=== PATIENT | male | born 1990 | race African-American/Black ===

== ENCOUNTER 2017-09-26 20:55 | Emergency (ER) | payer OTHER ==
[2017-09-26] MEDS ORDERED: PROPARACAINE HCL 0.5% OPHT SOLN 15 ML BTL EACH EYE ONE (21:00)
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
== END 2017-09-26 21:27 | disposition home or self-care (01) ==
LOC: NEPD 20:55
DX: H57.8 Other specified disorders of eye and adnexa (principal); T65.891A Toxic effect of other specified substances, accidental (unintentional), initial encounter; X58.XXXA Exposure to other specified factors, initial encounter; Y92.238 Other place in hospital as the place of occurrence of the external cause; Y93.F9 Activity, other caregiving; Y99.0 Civilian activity done for income or pay
CPT/HCPCS: 99281